=== PATIENT | male | born 1980 | race Two or more races ===

== ENCOUNTER 2022-05-12 07:52 | Emergency (ER) | payer OTHER ==
[~2022-05-12] VITALS: Ht 172.7 cm; Wt 86.2 kg
[2022-05-12] MEDS: FLUORESCEIN SOD OPTH TEST STRIP LEFTEYE ONE (09:32)
[2022-05-12] MEDS: TETRACAINE HCL 0.5% OPTH(EYE) SOLN 4ML LEFTEYE ONE (09:33)
[2022-05-12] MEDS ORDERED: IBUP800T27 PO (09:38)
[2022-05-12] MEDS ORDERED: CLIN300C8 PO (09:38)
[2022-05-12] MEDS ORDERED: DOXY-332 PO (09:38)
[2022-05-12] MEDS: LIDOCAINE 1% HCL (LOCAL ANESTH.) INJ 20ML MDV ONE (10:03)
[2022-05-12] MEDS: cefTRIAXone SOD 1,000 MG VL IM ONE (10:03)
[2022-05-12 10:06] VITALS: BP 138/82
== END 2022-05-12 10:13 | disposition home or self-care (01) ==
LOC: ER 07:52
DX: L03.211 Cellulitis of face (principal)
CPT/HCPCS: 96372; 99283; J0696; J2001

== ENCOUNTER 2022-06-15 02:37 | Emergency (ER) | payer OTHER ==
[~2022-06-15] VITALS: Ht 172.7 cm; Wt 118.0 kg
[~2022-06-15 02:37] MED LIST: CLIN300C8 PO; DOXY-332 PO; IBUP800T27 PO
[2022-06-15] MEDS ORDERED: MORPHINE SULFATE 4 MG/ML SYR/VIAL IV ONE ×2 (03:30→04:30)
[2022-06-15] MEDS ORDERED: ceFAZolin 1GM/50ML 100 ML IV ONE (04:00)
[2022-06-15 04:01] LABS: Basophils # (auto) 0 10 ^3/uL (0-0.2); Basophils % (auto) 0.2 % (0.0-2.0); Eosinophils # (auto) 0 10 ^3/uL (0-0.8); Eosinophils % (auto) 0.1 % (0.0-7.0); Hematocrit 48.2 % (41.0-53.0); Hemoglobin 16.5 g/dL (13.5-17.5); Lymphocytes % (auto) 18.5 % (10.0-50.0); Mean Corpuscular Hemoglobin 31.3 pg (28.0-32.0); Mean Corpuscular Hgb Conc. 34.3 g/dL (32.0-36.0); Monocytes # (auto) 0.5 10 ^3/uL (0-1.3); Monocytes % (auto) 4.8 % (0.0-12.0); Neutrophils % (auto) 76.4 % (37.0-80.0); Nucleated Red Blood Cells % 0.3 %; Red Blood Cells 5.29 10^6/uL (4.5-5.90); Red Cell Distribution Width 13.3 % (11.8-14.3); White Blood Cell 10.5 10^3/uL (4.4-10.8)
[2022-06-15 04:26] LABS: Calcium 8.8 mg/dL (8.5-10.1); Potassium 3.6 mmol/L (3.5-5.1)
[2022-06-15 04:29] LABS: Bilirubin, Total 0.4 mg/dL (0.2-1.0); Total Protein 7.7 g/dL (6.4-8.2)
[2022-06-15 07:31] VITALS: BP 113/62
== END 2022-06-15 05:16 | disposition short-term general hospital (02) ==
LOC: EDUNIT# 02:37 → ER 02:37 → EDBD 02:37 → ER 05:16
DX: S82.002B Unspecified fracture of left patella, initial encounter for open fracture type I or II (principal); S72.301A Unspecified fracture of shaft of right femur, initial encounter for closed fracture; S82.401A Unspecified fracture of shaft of right fibula, initial encounter for closed fracture; S82.301A Unspecified fracture of lower end of right tibia, initial encounter for closed fracture; S60.811A Abrasion of right wrist, initial encounter; F10.129 Alcohol abuse with intoxication, unspecified; W18.39XA Other fall on same level, initial encounter; Y93.89 Activity, other specified; Y92.89 Other specified places as the place of occurrence of the external cause; Y99.8 Other external cause status; Y90.8 Blood alcohol level of 240 mg/100 ml or more
CPT/HCPCS: 36415; 71045; 72192; 73090; 73130; 73590; 73700; 80053; 85025; 86850; 86900; 86901; 96365; 96375; 96376; 99285; J0690; J2270

== ENCOUNTER 2022-12-02 10:37 | Emergency (ER) | payer OTHER ==
[~2022-12-02] VITALS: Ht 172.7 cm; Wt 96.9 kg
[2022-12-02 11:29] VITALS: BP 138/82
== END 2022-12-02 12:41 | disposition home or self-care (01) ==
LOC: ER 10:37
DX: S09.22XA Traumatic rupture of left ear drum, initial encounter (principal); T70.29XA Other effects of high altitude, initial encounter; I10 Essential (primary) hypertension; W34.09XA Accidental discharge from other specified firearms, initial encounter; Y93.89 Activity, other specified; Y92.89 Other specified places as the place of occurrence of the external cause; Y99.8 Other external cause status